=== PATIENT | male | born 1945 | race Caucasian/White ===

== ENCOUNTER 2017-03-08 16:10 | Observation (INO) ==
--- NOTE | 2017-03-08 16:46 | Emergency Department Report ---
General Adult HPI - General Chief complaint: Extremity Injury, Lower Stated complaint: R FIB Time Seen by Provider: 03/08/17 16:26 Source: patient, EMS, other (neighbors (DPOA)) Mode of arrival: EMS - History of Present Illness HPI narrative: 72 YO WM who presents to ER for inability to bear weight on right leg. EMS reports that the patient came back from the bathroom today stating his hip didn't feel right and then fell back into his recliner because he could no longer stand on the right leg. Patient has a history of right total hip replacement. Patient denies hip or leg pain. Daughter reports that patient has become progressively weaker over the last several weeks to months. Yesterday, patient and daughter went to grocery store and patient only made it down two aisles before he said he was tired and done. - Related Data Home Medications Medication Instructions Recorded Confirmed Aspirin [Aspirin EC] 81 mg PO DAILY 03/08/17 03/08/17 Allergies Allergy/AdvReac Type Severity Reaction Status Date / Time No Known Allergies Allergy Verified 03/08/17 16:54 Review of Systems Constitutional: Denies: fever, chills Eyes: Denies: eye pain, eye discharge, vision change ENT: Denies: ear pain, throat pain, dental pain, hearing loss Cardiovascular: Denies: chest pain, palpitations, dyspnea on exertion, syncope, paroxysmal nocturnal dyspnea Respiratory: Denies: cough, dyspnea, wheezes, hemoptysis Gastrointestinal: Denies: abdominal pain, nausea, vomiting Genitourinary: Denies: urgency, dysuria, frequency, hematuria Musculoskeletal: Reports: as per HPI Neurological: Reports: abnormal gait. Denies: headache PFSH Patient Stated Medical History Cerebrovascular Accident Yes Other Yes: CHEWS TOBACCO ?"heart problem" takes only a baby aspirin a day Surgical History: Bilateral total hip replacements - Social History Smoking status: Former smoker Substance use type: does not use Housing: house Current occupational status: retired Does patient use chewing tobacco?: Yes Current residence: Apartment/Private Home Physical Exam - Limitations Limitations: no limitations - General General appearance: alert - Normal Exams: Head:: Normocephalic without trauma Eyes:: Pupils are PERRLA w/ EOMI, No scleral icterus ENMT:: No facial trauma, nasal exudates, pharyngeal erythema, or exudates are noted Chest/Respirations:: Clear all guillen, with good airflow, and symmetry bilaterally Cardiovascular:: Regular rate and rhythm, without murmur or gallop, Pulses 2+ all extremities, capillary refill, <2 seconds all extremities Abdomen:: Bowel sounds positive, soft, non-tender, non-distended, no hepatosplenomegaly, masses or bruits noted Integumentary:: No rashes, hives, or bruising noted Neurological:: Patient is alert, and oriented, cranial nerves, motor/sensory/ cerebellar, exams w/o gross deficits Psychiatric:: Patient exhibits, appropriate attention, emotion and affect - Expanded Lower Extremity Exam Hip/Pelvis exam: Present: internal rotation. Absent: tenderness (denies tenderness to deep palpation), swelling Upper leg exam: Absent: tenderness (denies tenderness to deep palpation), swelling, deformity, crepitus Knee exam: Present: normal inspection. Absent: tenderness, swelling, abrasion, laceration, ecchymosis, deformity Lower leg exam: Present: normal inspection. Absent: swelling, abrasion, laceration, ecchymosis, deformity, crepitus, dislocation Ankle exam: Present: normal inspection Neurovascular/Tendon exam: Present: normal capillary refill Course Vital Signs Temperature 98.2 F 03/08/17 16:10 Pulse Rate 80 03/08/17 16:10 Respiratory Rate 20 03/08/17 16:10 Blood Pressure 110/85 03/08/17 16:10 Pulse Oximetry 96 03/08/17 16:10 Temperature 99.4 F 03/08/17 17:50 Pulse Rate 65 03/08/17 17:40 Respiratory Rate 20 03/08/17 17:40 Blood Pressure 166/91 H 03/08/17 17:40 Pulse Oximetry 97 03/08/17 17:40 Medical Decision Making - Lab Data Result diagrams: 03/08/17 16:55 03/08/17 16:55 Lab Results 03/08/17 03/08/17 03/08/17 Range/Units 16:54 16:55 16:55 WBC 11.4 H (4.5-11.0) T/MM3 RBC 5.15 (4.50-5.90) M/MM3 Hgb 14.1 (13.5-17.5) GM/DL Hct 44.2 (41-53) % MCV 85.8 (80-100) UM3 MCH 27.4 (26-34) UUG MCHC 31.9 (31-37) GM/DL RDW Std Deviation 45.8 (36.9-50.2) FL Plt Count 165 (130-400) T/MM3 MPV 12.1 (9.4-12.4) UM3 Immature Gran % (Auto) 0.3 (0.0-0.5) % Neut % (Auto) 81.5 H (33-66) % Lymph % (Auto) 10.8 L (23-45) % [place] % (Auto) 5.7 (0-9.0) % Eos % (Auto) 1.5 (0-4) % Baso % (Auto) 0.2 (0-2) % Neut # (Auto) 9.3 H (1.8-7.7) T/MM3 Lymph # (Auto) 1.2 (1-4.8) T/MM3 [place] # (Auto) 0.7 (0-0.8) T/MM3 Eos # (Auto) 0.2 (0-0.5) T/MM3 Baso # (Auto) 0.0 (0-0.2) T/MM3 Abs Immat Gran (auto) 0.03 (0.00-0.03) T/MM3 Turbidity < 20 (0-20) Sodium 145 H (134-144) MEQ/L Potassium 4.3 (3.6-5) MEQ/L Chloride 107 (98-107) MEQ/L Carbon Dioxide 26 (22-30) MEQ/L Anion Gap 12 (5-15) MEQ/L BUN 12.0 (9-20) MG/DL Creatinine 0.9 (0.8-1.5) MG/DL GFR Calculation 83 BUN/Creatinine Ratio 13 (6-26) RATIO Glucose 115 H (75-110) MG/DL Calculated Osmolality 280 (261-280) MOSM/KG Calcium 9.6 (8.4-10.2) MG/DL Total Bilirubin 1.00 (0.20-1.30) MG/DL Conjugated Bilirubin 0.00 (0.00-0.30) MG/DL Unconjugated Bilirubin 0.70 (0.00-1.1) MG/DL Icterus Index < 2 (0-7) AST 28 (17-59) U/L ALT 51 (21-72) U/L Alkaline Phosphatase 84 (38-126) U/L Troponin I < 0.012 (0-0.12) ng/ml Total Protein 7.9 (6.3-8.2) G/DL Albumin 4.5 (3.5-5.0) G/DL Globulin 3.4 (2.4-3.6) G/DL Albumin/Globulin Ratio 1.3 (1.1-2.2) RATIO Specimen Hemolysis < 15 < 15 (0-25) Ur Collection Type Urine Color (YELLOW) Urine Clarity Urine pH (5.0-8.0) Ur Specific [place] (1.015-1.025) Urine Protein (NEGATIVE) Urine Glucose (UA) (NEGATIVE) Urine Ketones (NEGATIVE) Urine Occult Blood (NEGATIVE) Urine Nitrate (NEGATIVE) Urine Bilirubin (NEGATIVE) Urine Urobilinogen (NORMAL) EU/DL Ur Leukocyte Esterase (NEGATIVE) Urine RBC (0-3) /HPF Urine WBC (0-5) /HPF Ur Squamous Epith Cells Urine Bacteria (NEGATIVE) Ur Culture Indicated? 03/08/17 Range/Units 17:32 WBC (4.5-11.0) T/MM3 RBC (4.50-5.90) M/MM3 Hgb (13.5-17.5) GM/DL Hct (41-53) % MCV (80-100) UM3 MCH (26-34) UUG MCHC (31-37) GM/DL RDW Std Deviation (36.9-50.2) FL Plt Count (130-400) T/MM3 MPV (9.4-12.4) UM3 Immature Gran % (Auto) (0.0-0.5) % Neut % (Auto) (33-66) % Lymph % (Auto) (23-45) % [place] % (Auto) (0-9.0) % Eos % (Auto) (0-4) % Baso % (Auto) (0-2) % Neut # (Auto) (1.8-7.7) T/MM3 Lymph # (Auto) (1-4.8) T/MM3 [place] # (Auto) (0-0.8) T/MM3 Eos # (Auto) (0-0.5) T/MM3 Baso # (Auto) (0-0.2) T/MM3 Abs Immat Gran (auto) (0.00-0.03) T/MM3 Turbidity (0-20) Sodium (134-144) MEQ/L Potassium (3.6-5) MEQ/L Chloride (98-107) MEQ/L Carbon Dioxide (22-30) MEQ/L Anion Gap (5-15) MEQ/L BUN (9-20) MG/DL Creatinine (0.8-1.5) MG/DL GFR Calculation BUN/Creatinine Ratio (6-26) RATIO Glucose (75-110) MG/DL Calculated Osmolality (261-280) MOSM/KG Calcium (8.4-10.2) MG/DL Total Bilirubin (0.20-1.30) MG/DL Conjugated Bilirubin (0.00-0.30) MG/DL Unconjugated Bilirubin (0.00-1.1) MG/DL Icterus Index (0-7) AST (17-59) U/L ALT (21-72) U/L Alkaline Phosphatase (38-126) U/L Troponin I (0-0.12) ng/ml Total Protein (6.3-8.2) G/DL Albumin (3.5-5.0) G/DL Globulin (2.4-3.6) G/DL Albumin/Globulin Ratio (1.1-2.2) RATIO Specimen Hemolysis (0-25) Ur Collection Type Urine, clean catch Urine Color Yellow (YELLOW) Urine Clarity Cloudy Urine pH 7.5 (5.0-8.0) Ur Specific [place] 1.020 (1.015-1.025) Urine Protein 2+ A (NEGATIVE) Urine Glucose (UA) Negative (NEGATIVE) Urine Ketones Negative (NEGATIVE) Urine Occult Blood 2+ A (NEGATIVE) Urine Nitrate Positive A (NEGATIVE) Urine Bilirubin Negative (NEGATIVE) Urine Urobilinogen 0.2 (NORMAL) EU/DL Ur Leukocyte Esterase 2+ A (NEGATIVE) Urine RBC 1-3 (0-3) /HPF Urine WBC 50-200 H (0-5) /HPF Ur Squamous Epith Cells 5-10 Urine Bacteria 2+ H (NEGATIVE) Ur Culture Indicated? Cult reflexed &setup - Radiology Data Radiology results reviewed: Yes: I reviewed the patient's radiology results. HIP X-RAY: Hip prosthesis appears intact and in place. No evidence of edgardo- prosthetic fracture. No evidence of dislocation. Disposition Clinical Impression: Weakness generalized UTI (urinary tract infection) Qualifiers: Urinary tract infection type: acute cystitis Hematuria presence: with hematuria Qualified Code(s): N30.01 - Acute cystitis with hematuria Disposition: 02 To [facility] Condition: Stable Prescriptions: No Action Aspirin [Aspirin EC] 81 mg PO DAILY Referrals: Gianfranco Maher MD [Family Provider] - Time of Disposition: 18:00 - Seen By: physician
[2017-03-08] MEDS ORDERED: CEFTRIAXONE (ER USE ONLY) 1 GM in NS 100 ML IV ONE (18:10)
[2017-03-08 19:30] VITALS: BMI 27.0
[2017-03-08] MEDS ORDERED: ONDANSETRON 4 MG/2 ML INJECTION IVP PRN (20:29)
[2017-03-08] MEDS ORDERED: Bisacodyl EC TAB 5 MG TABLET PO PRN (20:29)
[2017-03-08] MEDS ORDERED: ACETAMINOPHEN 325 MG TABLET PO PRN (20:29)
--- NOTE | 2017-03-08 20:42 | History & Physical Report ---
History of Present Illness Date: 03/08/17 Chief complaint: "i fell back" HPI: 72-year-old white male presents to the emergency room this evening with weakness. He says to me that Thursday night is trying to get up from a chair when he fell back. He refers to weakness in his right leg is the reason. There is no other family or friends present to give corroborating history. Apparently a neighbor who is perhaps the power of liner helper gave some additional history that he had been progressively and increasingly weak over the past several days or weeks. He denies any chest pain shortness of breath though he does perhaps admit to orthopnea, he denies any fever chills abdominal or flank pain. He denies dysuria. I've asked him if he has any urinary frequency or other symptoms c/w prostate issues and he says "he can go all night" (I am not sure after asking 3 x if that means he can go all night without having to urinate or that he has to urinate all night") He denies recent known history of injury to hip. He denies hip pain. Review of Systems Review of systems: weakness in right leg , he uses a walker for issues with his hips (broke both in the past) and shortness of breath with lying down (I think) - could be possibly referring to post nasal drip [facility] Patient Stated Medical History Cerebrovascular Accident Yes Other Yes: CHEWS TOBACCO Surgical History: Bilateral total hip replacements Family History: nc/ based on age - Social History Smoking status: Former smoker Substance use type: does not use Alcohol intake frequency: does not drink Housing: house Household members: none, other (single, no children. neighbor POA (?) ) Medications Home Medications Medication Instructions Recorded Confirmed Type Aspirin [Aspirin EC] 81 mg PO DAILY 03/08/17 03/08/17 History Allergies Allergy/AdvReac Type Severity Reaction Status Date / Time No Known Allergies Allergy Verified 03/08/17 19:32 Exam Vital Signs: Temperature 96.3 F L 03/08/17 19:36 Pulse Rate 65 03/08/17 19:36 Respiratory Rate 20 03/08/17 19:36 Blood Pressure 171/99 H 03/08/17 19:36 Pulse Oximetry 97 03/08/17 19:36 Height/Weight/BMI: Height 1.83 m Weight 90.5 kg Body Mass Index 27.0 - Additional findings Additional findings: in general he is pleasant, he is somewhat hard for me to understand, he is oriented to hospital near [place], and February 26, 2017 Facial muscles appear symmetric Neck is supple Lungs are clear bilaterally no accessory muscle use Cardiovascular is regular without murmur gallop or rub Abdomen is soft benign nontender Extremities Trace Edema Lines Were Socks Are Really, Neuro His Steam Drier Tender Strength and Facial Features Are Symmetric His Right Leg with Hip Flexion Is Slightly Weaker Compared to the Left Did Not Assess His Gait Results - Labs CBC & Chem 7: 03/08/17 16:55 03/08/17 16:55 Assessment and Plan (1) UTI (urinary tract infection) Current visit: Yes Status: Acute 03/08/17 20:48 low grade temp and urine c/w UTI. No signs/sx of back/flank pain to think of kidney stone. Will ask for PVR as prostatism / outflow track maybe an issue. Rocephin ordered in ER (2) Transient weakness of right lower extremity Current visit: Yes Status: Acute 03/08/17 20:49 This seems to be likely related to hx of hip issues, he usually needs a walker. I don't see reason at this point to pursue other CVA / cause workup but will order lipid panel and monitor for changes. (3) Weakness generalized Current visit: Yes Status: Acute 03/08/17 20:50 We are presuming at this time related to UTI. He speaks of perhaps orthopnea, will get 2 view CXR in AM, PT eval Hospital Course Summary Disclaimer: The visit summary below is not to be considered part of the above Progress Note.
[2017-03-09] MEDS ORDERED: NS FLUSH BAG 500ml IV PRN (06:52)
--- NOTE | 2017-03-09 07:25 | XRay Report ---
Indication: Can't bear weight on right leg, hx total hip replacement XR hip RT min 2V: Comparison: None Technique: Two view exam Findings: Patient shows postoperative changes about the right hip. Potential injury to the right inferior pubic symphysis is present. Patient shows a subtle questionable lucency. If this correlates with area of patient's symptoms CT scanning might be a consideration to better assess the finding. Some periosteal reaction is identified along the medial aspect of the mid femoral shaft. This finding is of indeterminate significance as no acute fracture line is noted. Impression: 1. Postoperative changes about the hip joint. 2. Questionable subtle injury to the inferior right pubic ramus. A subtle lucency is noted which is of indeterminate age. 3. Area of periosteal reaction along the medial shaft of the femur at the level of the distal intramedullary portion of the prosthesis. .
--- NOTE | 2017-03-09 07:33 | XRay Report ---
Indication: Can't bear weight on rt leg XR tib/fib RT 2V: Comparison: None Technique: AP and lateral view Findings: Patient showed mild degenerative changes about the ankle joint and moderate degenerative changes about the knee however no definite acute fracture appreciated. No malalignments noted. Impression: Degenerative changes particularly about the knee as well as the ankle without acute bony fracture. .
[2017-03-09] MEDS: ASPIRIN *EC* 81 MG TABLET PO SCH (10:54)
[2017-03-09] MEDS ORDERED: CEFTRIAXONE 1 G in NS 100 ML IV SCH (18:00)
[2017-03-10 07:50] VITALS: BP 149/60; PULSE 66; RESP 18; TEMP 97.3; O2SAT 95
[2017-03-10] MEDS: ASPIRIN *EC* 81 MG TABLET PO SCH (08:21)
--- NOTE | 2017-03-10 11:09 | Discharge Summary ---
Discharge Information Date of admission: 03/08/17 18:14 Anticipated date of discharge: 03/10/17 Attending Physician: Jamel Spann MD Primary care physician: Abraham Maher MD Consults: PT/OT IRU Screen - Discharge Diagnosis (1) UTI (urinary tract infection) Status: Acute (2) Weakness generalized Status: Acute (3) Transient weakness of right lower extremity Status: Acute Discharge Diagnosis: Discharge diagnosis UTI - ANDREW Associated conditions and complications Right lower ext weakness Leukocytosis Gait instability Generalized weakness CV disease with history of prior stroke OA - Laboratory Labs: Admit Lab 03/08/17 16:55 WBC 11.4 H Hgb 14.1 Hct 44.2 MCV 85.8 Plt Count 165 Neut % (Auto) 81.5 H Lymph % (Auto) 10.8 L [place] % (Auto) 5.7 Eos % (Auto) 1.5 Admit Lab 03/08/17 16:55 Sodium 145 H Potassium 4.3 Chloride 107 Carbon Dioxide 26 Anion Gap 12 BUN 12.0 Creatinine 0.9 GFR Calculation 83 Glucose 115 H Calculated Osmolality 280 Calcium 9.6 Total Bilirubin 1.00 AST 28 ALT 51 Alkaline Phosphatase 84 Total Protein 7.9 Albumin 4.5 UA 03/08/17 17:32 Urine Clarity Cloudy Ur Specific [place] 1.020 Urine Protein 2+ A Urine Occult Blood 2+ A Urine Nitrate Positive A Ur Leukocyte Esterase 2+ A Urine WBC 50-200 H Urine Bacteria 2+ H History of Present Illness HPI: 72-year-old white male presents to the emergency room this evening with weakness. He says to me that Thursday night is trying to get up from a chair when he fell back. He refers to weakness in his right leg is the reason. There is no other family or friends present to give corroborating history. Apparently a neighbor who is perhaps the power of employee benefits attorney gave some additional history that he had been progressively and increasingly weak over the past several days or weeks. He denies any chest pain shortness of breath though he does perhaps admit to orthopnea, he denies any fever chills abdominal or flank pain. He denies dysuria. I've asked him if he has any urinary frequency or other symptoms c/w prostate issues and he says "he can go all night" (I am not sure after asking 3 x if that means he can go all night without having to urinate or that he has to urinate all night") He denies recent known history of injury to hip. He denies hip pain. For complete details of the H&P refer to that document. Objective Vital signs: Temperature 97.3 F 03/10/17 07:50 Pulse Rate 66 03/10/17 07:50 Respiratory Rate 18 03/10/17 07:50 Blood Pressure 149/60 H 03/10/17 07:50 Pulse Oximetry 95 03/10/17 07:50 Height/Weight/BMI: Height 1.83 m Weight 89.4 kg Body Mass Index 27.0 - Constitutional Present: no acute distress, well nourished, well developed, cooperative - Routine HEENT Exam Head: Present: normocephalic, atraumatic ENT: Present: mucous membranes moist - Routine Respiratory Exam Present: decreased breath sounds. Absent: rales, respiratory distress, rhonchi , wheezes, crackles - Routine Cardiovascular Exam Present: RRR, no murmur - Routine Abdominal Exam Present: soft, normoactive bowel sounds, non distended, non tender - Routine Extremities Exam Present: edema (+1 edema of RLE). Absent: cyanosis, clubbing - Routine Skin Exam Present: intact, dry, warm - Routine Neurological Exam Present: alert, oriented X3, moving all extremities, vision grossly intact, hearing grossly intact. Absent: altered mental status - Routine Psychiatric Exam Present: normal affect, normal thought process. Absent: cooperative, anxious Hospital Course This is a general summary of the patient's hospital course. For more details refer to the complete medical record. Hospital course: 03/08/17 OBS admission Assessment UTI Leukocytosis Right lower ext weakness Gait instability Generalized weakness OA Plan OBS admission Rocephin for urinary coverage Continue home ASA. SCD for DVT prevention. Full code as per his requests. Care to return to Dr Maher at time of discharge from [facility]. 03/09/17 PT/OT to assess strength and functional status. Possible IRU evaluation depending of his level of functionality. Patient worked with PT-they do not feel is functioning well enough to return home independently. Patient agreeable to IRU. Awaiting transfer. 03/10/17 Urine growing ANDREW - will change to doxycycline. Accepted to IRU. Will transfer there in stable condition to maximize strength and functional status. Will need F/U with Dr Maher 1 week post discharge from IRU. See orders for details. DVT Prophylaxis: SCD's Discharge Plan - Med Rec/Dispo Referrals/Follow Up: Gianfranco Maher MD [Family Provider] - (Needs follow up 1 week after discharge from IRU. ) Dutch Instructions: Urinary Traction Infection in Older Adults (GEN) Prescriptions: New Doxycycline [Vibramycin] 100 mg PO BIDWM #14 tab Continue Aspirin [Aspirin EC] 81 mg PO DAILY Discharge Instructions/Outpatient Orders: Provider Discharge Instructions Location: Determined By Patient - Disposition 62 To [facility] INPT Rehab - Attestation Attestation Narrative: 03/10/17 11:21 I have independently interviewed and examined patient prior to discharge. Case discussed with CM and patients emergency care attendant. Medically stable for discharge to IRU.
== END 2017-03-10 12:00 ==
LOC: MED 16:10 → ED 16:10 → SUATTDRO 18:14 → MED 19:15
PROVIDERS: ADMIT Internal Medicine; ATTEND Hospitalist

== ENCOUNTER 2017-03-10 12:32 | Inpatient (IN) ==
[2017-03-10] MEDS ORDERED: Bisacodyl EC TAB 5 MG TABLET PO PRN (12:56)
[2017-03-10] MEDS ORDERED: ACETAMINOPHEN 325 MG TABLET PO PRN (12:56)
[2017-03-10] MEDS ORDERED: POLYETHYL GLYCOL 3350 17gm PACKET PO PRN (12:56)
[2017-03-10 14:19] VITALS: BMI 26.8
--- NOTE | 2017-03-10 14:31 | IRU History & Physical Report ---
HPI U Date: 424 Chief complaint: I'm weak HPI: Mr. Humphreys is a 72-year-old male who presented to [facility] emergency department on 03/08/2017. Referring physician is Dr. Jamel Spann, hospitalist. His primary care physician is Gianfranco Maher MD. He was admitted to the acute care hospital when he reported that he was having weakness in the right lower extremity. He denied any pain. He reported at the time of admission that he had gotten up from a chair and then fell back into the chair and at that point noted right lower extremity weakness. Evaluation in the emergency department failed to reveal any discomfort whatsoever and there was no evidence of stroke otherwise. The patient was noted to have a urinary tract infection but denied any dysuria or frequency or fever. He was admitted to the hospital because he could not care for himself at home due to the weakness in the right lower extremity as well as because the urinary tract infection. A plain radiograph of the right hip showed an old prosthesis on the right side in good position. There was questionable lucency in the right inferior pubic ramus without displacement. It was unclear if there was a fracture there or not. He denied any pain however in that area. 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 While on acute, the patient was noted to have methicillin sensitive staph aureus in his urine. He was treated initially with Rocephin and is now on doxycycline. He has been afebrile. However his intake has been poor. Prior to admission he had been independent with grooming, bathing, upper and lower body dressing and toileting. At the present time his functional level is as follows: Minimal assistance with eating, grooming, upper body dressing. He is maximum assistance for bathing, lower body dressing. He is total assistance for toileting, bed/chair/wheelchair transfers, toilet transfers and walking. He is able to walk only 2 feet with a rolling walker. The patient does not wish to answer many questions. I queried him as to his past medical history, his history of stroke etc. but he did not wish to respond to these. He told me to look in the chart or check the computer if I wanted to know further information. He did give us permission to visit with his power of defense attorney. Further history is obtained from her. His power of defense attorney is Sima Barclay. She indicates that she understands that the patient was a good student up until high school. At that time he suddenly lost the ability to read and write. Following that. Things went downhill and he is barely able to sign his name at present. He has been able to maintain employment at [employer] but is retired from them at present. Also worked for the [employer]. His real love his horses. He has been "mentally challenged" ever since the power of defense attorney has known him. The only relative is a cousin Sveta in [place]. She reports that he had a stroke about 10 years ago resulting in some left-sided weakness. However he has had a decline over the past month with decreased endurance, increased sweatiness and shortness of breath with activity. She indicates he was on Coreg in the past for blood pressure about 4 years ago. However he stopped taking it because he was taking both pills in the morning. In addition he declines to have his blood drawn according to her. Has had syncope about 6 months ago. He was taken to [facility] in [place] and it is not clear what happened. The DPOA was told he "didn't have a brain" and they did not know how he was living. The following medical conditions are noted and require active monitoring and/or management: 1. Recent UTI: risk for sepsis, worsening infection 2. Right lower leg weakness: apparently of new onset. No other evidence of stroke acutely. He is at risk for falls and further injury. 3. Hypernatremia: 145. 4. Hypertension: was on med in the past but not now. 5. Reduced cognition/mental "capacity" The following therapies will be needed: 1. Physical therapy: for transfers and ambulation and stairs. 2. Occupational therapy: for ADL's and transfers. 3. Dietitian: To insure adequate nutrition 4. Medical management: for the above conditions. 5. 24 hour Rehabilitation Nursing to monitor and address the following: Monitoring for signs of recurrence of infection or sepsis. [facility] Patient Stated Medical History Cerebrovascular Accident Yes Hx Incontinence No Other Yes: CHEWS TOBACCO Medical History Updates: 1. History of CVAuncertain residual Surgical History: Bilateral total hip replacements Family History: Father is of uncertain cause. Mother from myocardial infarction. He reportedly has no siblings. - Social History Smoking status: Never smoker Substance use type: other (patient chews tobacco at the rate of one box every 2 weeks he states.) Alcohol intake: never Alcohol intake frequency: other (reports drinking one beer per year.) Housing: house Household members: none Does patient use chewing tobacco?: Yes (reports going through one box every 2 weeks.) Current residence: Apartment/Private Home Social history: Patient reports that he enjoys taking care of horses. He is caring for 3 of his neighbors horses right now. 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 He lives in a trailer house. He is single and has never been . He was born in [place]. Review of Systems - Constitutional Constitutional: Present: anorexia. Absent: fatigue, lethargy - EENMT Eyes: Present: other (has disconjugate gaze. Uncertain which I he is looking out of.). Absent: blurry vision Balance: Absent: vertigo Mouth/Throat: Absent: pain, sore throat, scratchy throat - Cardiovascular Cardiovascular: Absent: chest pain, palpitations, syncope, dyspnea on exertion, orthopnea, edema Rhythm: Present: regular rhythm Vascular: Absent: intermittent claudication - Respiratory Respiratory: Absent: cough, dyspnea, hemoptysis, dyspnea on exertion, wheezing, pain on inspiration, chest congestion, excessive phlegm production - Gastrointestinal Gastrointestinal: Absent: abdominal pain, change in bowel habits, constipation, diarrhea, dyspepsia, dysphagia, nausea, vomiting - Musculoskeletal Musculoskeletal: Present: arthralgias - Neurological Neurological: Present: abnormal speech, memory loss (he appears to have memory loss. A formal exam was not performed at this time due to his lack of cooperation.), weakness - Psychiatric Psychiatric: Present: anxiety Medications Home Medications Medication Instructions Recorded Confirmed Type Aspirin [Aspirin EC] 81 mg PO DAILY 03/08/17 03/10/17 History Acetaminophen [Tylenol] 325 - 650 mg PO Q5H PRN 03/10/17 03/10/17 History Allergies Allergy/AdvReac Type Severity Reaction Status Date / Time No Known Allergies Allergy Verified 03/08/17 19:32 Results IRU - Labs Labs: Reviewed inpatient records and discussed with power of defense attorney. Exam Vital Signs: Temperature 97.9 F 03/10/17 12:40 Pulse Rate 73 03/10/17 12:40 Respiratory Rate 16 03/10/17 12:40 Blood Pressure 152/82 H 03/10/17 12:40 Pulse Oximetry 92 03/10/17 12:40 Height/Weight/BMI: Height 1.83 m Weight 89.8 kg Body Mass Index 26.8 - Constitutional Present: no acute distress, well developed, disheveled, agitated. Absent: well nourished, cooperative - Routine HEENT Exam Head: Present: normocephalic, atraumatic. Absent: cushingoid faces, abrasion, laceration Eye: Absent: EOMI (has bilateral disconjugate gaze. Each eye tends to deviate outward and I think he is looking through the other eye at that time.), scleral injection ENT: Present: oropharynx clear. Absent: mucous membranes moist - Routine Neck Exam Present: supple - Routine Respiratory Exam Present: CTA bilaterally. Absent: accessory muscle use, dyspnea, decreased breath sounds, prolonged expiratory phase, rales, respiratory distress, rhonchi , wheezes, crackles, distant breath sounds - Routine Cardiovascular Exam Present: RRR, S1, S2, no murmur. Absent: S3, S4 - Routine Abdominal Exam Present: soft, normoactive bowel sounds, non distended, non tender. Absent: distended, rebound, guarding, firm, rigid, organomegaly, mass - Routine Extremities Exam Present: no edema. Absent: cyanosis, clubbing, edema Comments: Has valgus deformity primarily of the right knee but also somewhat of the left. - Routine Skin Exam Present: dry, warm. Absent: intact, erythema, mottling, petechiae, urticaria, lesions - Routine Neurological Exam Present: alert, motor deficit (right leg appears to be weaker than the left on flexion at the hip as well as flexion and extension at the knee.). Absent: CN II-XII intact (disconjugate gaze with each eye deviated outward a bit.), altered mental status, normal speech (speech is difficult to understand.) - Routine Psychiatric Exam Absent: normal affect, normal thought process, cooperative, good insight, good judgment Sepsis Assessment - Evaluation Confirmed Suspected Infection: No IRU A/P (1) UTI (urinary tract infection) Qualifiers: Urinary tract infection type: acute cystitis Hematuria presence: with hematuria Qualified Code(s): N30.01 - Acute cystitis with hematuria Current visit: No Status: Acute Patient is on doxycycline. He has history of staph aureus methicillin sensitive UTI. He is at risk for worsening symptoms of urinary tract infection or sepsis. (2) Right leg weakness Current visit: Yes Status: Acute (3) Weakness generalized Current visit: No Status: Acute His functional ability has certainly declined compared to prior to the admission based on his report. He is unsafe to be at home alone at this time. He is generally weak but perhaps worse in the right lower extremity. He is at risk for falling and further injuring himself. (4) Anorexia Current visit: Yes Status: Chronic He reports a poor appetite. We will assess his prealbumin level to assess his degree of nutrition at present. Dietitian will be consulted as well. Resuscitation Status: Full Code - Course Hospital Course: Elmer Bran MD: - Interventions to Obtain Goals PT Treatment Plan: Balance/Proprioception, Functional Activities, Gait Training , Patient/Family Education OT Treatment Plan: ADL (Basic Care), Pt./Family Education Goals Progress/Modifications: The patient is not safe to be at home at the present time. It is anticipated the patient will be able to return to some degree of modified independent functioning. His mental status may be a significant barrier to his functional improvement. He tends to be noncooperative at present. Uncertain if this is related to a memory issue or personality disorder.
--- NOTE | 2017-03-10 14:45 | IRU 24Hr Post Admit Eval ---
24 Hr Post Admission Physical - Relevant Changes Relevant Changes: No Reviewed: I have reviewed the patient's information and concur with the finding and results of the pre-admission screen. Certification: I certify the patient for rehabilitation. - Patient Condition (1) UTI (urinary tract infection) Status: Acute Qualifiers: Urinary tract infection type: acute cystitis Hematuria presence: with hematuria Qualified Code(s): N30.01 - Acute cystitis with hematuria Code(s): N39.0 - Urinary tract infection, site not specified Classification: Present on IRF Admission, IRF Tx That Should Address Diagnosis, Diagnosis Requiring Medical Follow Up (2) Right leg weakness Status: Acute Code(s): R29.898 - Other symptoms and signs involving the musculoskeletal system Classification: Present on IRF Admission, IRF Tx That Should Address Diagnosis, Diagnosis Requiring Medical Follow Up (3) Weakness generalized Status: Acute Code(s): R53.1 - Weakness Classification: Present on IRF Admission, IRF Tx That Should Address Diagnosis, Diagnosis Requiring Medical Follow Up (4) Anorexia Status: Chronic Code(s): R63.0 - Anorexia Classification: Present on IRF Admission, IRF Tx That Should Address Diagnosis, Diagnosis Requiring Medical Follow Up - Prior Functional Status Lives With: Alone Residence Type: Apartment/Private Home Assitive Devices: None Prior Functional Status: Indep. at home or school, Used no assistive device - Current Functional Status Current Level of Function: Current level of functioning is minimal assistance for eating, grooming, and upper body dressing. He is maximum assistance for bathing, lower body dressing. He is total assistance for toileting, bed/chair/wheelchair transfers, toilet transfers and walking. He is able to walk with a rolling walker only 2 feet. Failed Alternative Therapy: Arrived from Acute Care Patient Requirements: The patient requires oversight by rehabilitation physician to manage their rehabilitation treatment plan and multidisciplinary approach to care that can only be provided in an IRF and requires a multidisciplinary approach to care, provided by professional PTs, OTs, dieticians, rehabilitation nurses and is not available in lesser levels of care. Limitations Req: Mobility Impairment, ADL Impairment, Cognitive Impairment Physical Therapy Minutes: 90 Occupational Therapy Minutes: 90 Therapy: The patient is to receive therapy at least 5 days a week. - Complications/Comorbidities Impact on Functional Outcomes: His cognition and cooperation level may negatively impact his functional outcome. Barriers to Discharge: Weakness, Endurance, Comprehension - Plan to Avoid Complications Plan to Avoid Complications: The patient cannot receive this care in a lesser intensive setting such as Nursing Home or Outpatient Therapy due to the patient requiring the following : 24 rehabilitation nursing to monitor recurrence of UTI/development of sepsis or worsening infection, monitor oral intake, avoidance of falls and to improve strength and endurance and balance. .
[2017-03-11] MEDS: ASPIRIN *EC* 81 MG TABLET PO SCH (09:26)
--- NOTE | 2017-03-11 19:00 | Consult Note ---
<Caty Mario - Last Filed: 03/11/17 18:56> Consult Information - Data of Consult Consult date: 03/11/17 Requesting Physician: Elmer Bran MD Primary Care Provider: Abraham Maher MD Family Provider: Abraham Maher MD - Consult Narrative Reason for consult: medical management of chronic health issues History of present illness: Patient is a 72-year-old who initially presented to our emergency department on 03/08/17 for weakness in the right lower extremity. There was no evidence of stroke at that time. Patient had been admitted to observation due to the new onset of weakness. He was diagnosed with a UTI on a during his stay and was treated with Rocephin initially and then switched to doxycycline. As he was medically stable, he was transferred to IRU for strengthening. Today patient is seen during therapy. He has very jovial and cooperative. He has no complaints at this time other than his weakness. 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 Review of Systems All systems PM: 10-point ROS was reviewed, no additional remarkable complaints except - Musculoskeletal Musculoskeletal: Present: muscle weakness Medications Home Medications Medication Instructions Recorded Confirmed Type Aspirin [Aspirin EC] 81 mg PO DAILY 03/08/17 03/10/17 History Acetaminophen [Tylenol] 325 - 650 mg PO Q5H PRN 03/10/17 03/10/17 History Allergies Allergy/AdvReac Type Severity Reaction Status Date / Time No Known Allergies Allergy Verified 03/10/17 17:21 Exam Vital Signs: Temperature 98.1 F 03/11/17 16:00 Pulse Rate 61 03/11/17 16:00 Respiratory Rate 25 H 03/11/17 16:00 Blood Pressure 142/77 H 03/11/17 16:00 Pulse Oximetry 93 03/11/17 16:00 Height/Weight/BMI: Height 1.83 m Weight 89.8 kg Body Mass Index 26.8 - Constitutional Present: well nourished, well developed - Routine HEENT Exam Eye: Absent: EOMI (left eye with lateral deviation) ENT: Present: mucous membranes moist - Routine Neck Exam Present: supple. Absent: thyromegaly - Routine Respiratory Exam Present: decreased breath sounds, CTA bilaterally. Absent: wheezes - Routine Cardiovascular Exam Present: RRR. Absent: murmur - Routine Abdominal Exam Present: soft, normoactive bowel sounds, non distended. Absent: tenderness - Routine Extremities Exam Present: normal capillary refill. Absent: edema Comments: Right lower extremity larger than the left. Patient states this is chronic for him. Apparently he's had some sort of surgery to the nerve in the left leg causing some atrophy. - Routine Skin Exam Present: dry, warm - Routine Neurological Exam Present: alert, moving all extremities. Absent: tremors - Routine Psychiatric Exam Present: normal affect, cooperative Results - Labs CBC & Chem 7: 03/11/17 04:43 03/11/17 04:43 Assessment and Plan (1) UTI (urinary tract infection) Current visit: No Status: Acute (2) Weakness generalized Current visit: No Status: Acute (3) Transient weakness of right lower extremity Current visit: No Status: Acute Assessment and Plan: Assessment Right leg weakness Generalized weakness Anorexia UTI-on doxycycline Malnutrition Plan Patient has a dietary consult ordered and will start nutritional supplements. Could consider mirtazapine to help with appetite. Will see how he does w/ nutritional supplements first. Continue doxycycline for UTI through March 17. PT/OT for strengthening. Will continue to follow patient throughout his stay. Thank you for the consult. Hospital Course Summary Disclaimer: The visit summary below is not to be considered part of the above Progress Note. Hospital Course: Assessment Right leg weakness Generalized weakness Anorexia UTI-on doxycycline Malnutrition 03/11/17 - hospitalist consult Patient has a dietary consult ordered and will start nutritional supplements. Could consider mirtazapine to help with appetite. Will see how he does w/ nutritional supplements first. Continue doxycycline for UTI through March 17. PT/OT for strengthening. Will continue to follow patient throughout his stay. Thank you for the consult. <Roshni Galaviz - Last Filed: 03/11/17 21:46> Consult Information - Data of Consult Requesting Physician: Elmer Bran MD Primary Care Provider: Abraham Maher MD Family Provider: Abraham Maher MD Exam Vital Signs: Temperature 98.1 F 03/11/17 16:00 Pulse Rate 61 03/11/17 16:00 Respiratory Rate 25 H 03/11/17 16:00 Blood Pressure 142/77 H 03/11/17 16:00 Pulse Oximetry 93 03/11/17 16:00 Height/Weight/BMI: Height 1.83 m Weight 89.8 kg Body Mass Index 26.8 Results - Labs CBC & Chem 7: 03/11/17 04:43 03/11/17 04:43 Assessment and Plan (1) UTI (urinary tract infection) Problem details: ANDREW Current visit: No Status: Acute (2) Weakness generalized Current visit: No Status: Acute (3) Transient weakness of right lower extremity Current visit: No Status: Acute Resuscitation Status: Full Code Assessment and Plan: I have independently evaluated and examined this patient. I reviewed the chart, the patient's history, and the LIQUOR BRIDGE OPERATOR HELPER/PA's documented findings as above. We discussed and formulated the assessment and plan as above with additions as below: Mr. Humphreys was hospitalized with weakness attributed to urinary tract infection rather than new stroke. He reports he still has some minor weakness in his right leg but that he was able to walk all over the unit today and he thinks he'll be able to go home soon. He denies dysuria or fever. Talkative male with moderate dysarthria; exotropia Respirations nonlabored, breath sounds clear Upper extremity power normal both proximally and distally, distal lower extremity power normal but weakness present proximal right lower extremity compared to left. Sensation intact 4 extremities Pre-albumin 12.3, renal function good with GFR 95; mild leukocytosis on presentation and may have been slightly dehydrated as patient appears to been hemoconcentrated although BUN/creatinine really haven't changed since admission. Urine culture reviewed. Switch to cephalexin for treatment of UTI for better penetration of the urinary tract compared to doxycycline. Continue strengthening efforts prior to return home. Return to the care of Dr. Maher at discharge. Prior records reviewed. X-ray right hip and tib-fib reviewed by myself and demonstrated good positioning of hemiarthroplasty and no fracture of femur. Radiology read a possible subtle injury to the inferior right pubic ramus however the patient does not complain of pubic/pelvic pain; degenerative changes around the knee and ankle. In addition to above diagnoses please add: #1 history CVA Hospital Course Summary Disclaimer: The visit summary below is not to be considered part of the above Progress Note.
[2017-03-12] MEDS: ASPIRIN *EC* 81 MG TABLET PO SCH (08:59)
--- NOTE | 2017-03-12 14:17 | IRU Progress Note ---
- Subjective/Serverity of Illness Mr. Humphreys was evaluated in his room on the inpatient rehabilitation unit. He continues to state that he does not eat well and never has. He also states that he wants to go home as soon as possible. He continues to bring up his hobby of horses as well. He is making progress with therapies for both occupational therapy and physical therapy. At times he is not is cooperative. He would like to take all of his antibiotics at once to get the infection over with. He denies any dysuria nor frequency. He has had no chest pain and no shortness of breath. 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 He does have history of hypertension. His blood pressures are running a bit high. In the past he was on carvedilol according to his power of personal injury attorney. He did not like to take this because it was a twice-daily medication. For this reason and because his pressures are still up we will place him on some metoprolol succinate 40 once daily medication. 1. Recent UTI: He has been on doxycycline. He has had staph aureus in the urine. This has been methicillin sensitive. The patient denies any dysuria or frequency. 2. Right lower leg weakness: He denies any pain in the right leg. Both legs are weak but the right is worse in the left. 3. Hypernatremia: Sodium initially was 145. It is now down to 142. 4. Hypertension: Please see above discussion. His pressures are running a bit high. I will start a low dose of metoprolol succinate. 5. Reduced cognition/mental "capacity": I'm not certain he has great judgment nor comprehension. He would like to get back home as soon as possible. This is not a new issue however according to the power of personal injury attorney. 6. Moderate protein calorie malnutrition: The patient's prealbumin is 12. Dietitian is consulted. Exam Vital Signs: Temperature 98.5 F 03/12/17 08:00 Pulse Rate 74 03/12/17 08:00 Respiratory Rate 20 03/12/17 08:00 Blood Pressure 181/81 H 03/12/17 08:00 Pulse Oximetry 98 03/12/17 08:00 Height/Weight/BMI: Height 1.83 m Weight 89.8 kg Body Mass Index 26.8 Comments: The patient is awake, alert. To the best of my knowledge she is oriented. He was to get home as soon as possible. His judgment is impaired. Pupils are equal. The neck is supple. Chest: Clear to auscultation bilaterally. Cor: RR with no gallop, click nor murmur Abd: soft with normo-active bowel sounds. There are no masses, no tenderness and no guarding. Extremities: No edema is noted. He does have severe valgus deformity of both knees. Results IRU - Labs Labs: Have reviewed his labs including pre-albumin of 12. IRU A/P (1) UTI (urinary tract infection) Qualifiers: Urinary tract infection type: acute cystitis Hematuria presence: with hematuria Qualified Code(s): N30.01 - Acute cystitis with hematuria Problem details: ANDREW Current visit: No Status: Acute He is finishing up his course of doxycycline for methicillin sensitive staph aureus. Currently denies any dysuria or frequency. He has remained afebrile. (2) Right leg weakness Current visit: Yes Status: Acute Has right leg weakness. Uncertain if this is progressive or not. He does have valgus deformity of both knees which plays a role in this as well. Denies any pain. (3) Weakness generalized Current visit: No Status: Acute Has significant generalized weakness likely due to disuse/deconditioning at home. (4) Anorexia Current visit: Yes Status: Chronic He does have evidence for protein calorie malnutrition at least a moderate degree based on the pre-albumin level of 12. He is being seen by the dietitian. (5) Hypertension Qualifiers: Hypertension type: essential hypertension Qualified Code(s): I10 - Essential (primary) hypertension Current visit: Yes Status: Chronic Patient's power of personal injury attorney reported that he has a history of hypertension and formerly was on carvedilol. He did not like this because it was a twice day medication. His pressures are running a bit higher at the present time so we will start a low dose of metoprolol succinate for a once daily medication. Resuscitation Status: Full Code - Course Hospital Course: Elmer Bran MD: 03/12/17 14:20 He is working with therapy both physical therapy and occupational therapy. Dietitian is monitoring. Does have moderate protein calorie malnutrition based on low. Albumin. His blood pressures are running too high and we will start a daily dose of metoprolol succinate. - Interventions to Obtain Goals PT Treatment Plan: Balance/Proprioception, Functional Activities, Gait Training , Patient/Family Education, Therapeutic Exercise OT Treatment Plan: ADL (Basic Care), Balance Training, Pt./Family Education, Ther. Exercise for ADL Goals Progress/Modifications: Time spent with patient and on floor reviewing data and documentin min Barriers to dismissal: Cognition, endurance, safety awareness Medical decision-making: He remains afebrile. He will finish out his course of doxycycline which he is tolerating well. His blood pressures are running too high so we will start metoprolol succinate 25 mg today as a once daily medication. Will monitor his response to this carefully. He has a new diagnosis of at least moderate protein calorie malnutrition which is addressed with dietary consultation.
--- NOTE | 2017-03-12 15:04 | IRU Plan of Care ---
U Overall Plan of Care - Date Date: 03/12/17 - Patient Impairments (1) UTI (urinary tract infection) Qualifiers: Urinary tract infection type: acute cystitis Hematuria presence: with hematuria Qualified Code(s): N30.01 - Acute cystitis with hematuria Code(s): N39.0 - Urinary tract infection, site not specified Status: Acute Classification: Present on IRF Admission, IRF Tx That Should Address Diagnosis, Diagnosis Requiring Medical Follow Up (2) Right leg weakness Code(s): R29.898 - Other symptoms and signs involving the musculoskeletal system Status: Acute Classification: Present on IRF Admission, IRF Tx That Should Address Diagnosis, Diagnosis Requiring Medical Follow Up (3) Weakness generalized Code(s): R53.1 - Weakness Status: Acute Classification: Present on IRF Admission, IRF Tx That Should Address Diagnosis, Diagnosis Requiring Medical Follow Up (4) Anorexia Code(s): R63.0 - Anorexia Status: Chronic Classification: Present on IRF Admission, IRF Tx That Should Address Diagnosis, Diagnosis Requiring Medical Follow Up (5) Hypertension Qualifiers: Hypertension type: essential hypertension Qualified Code(s): I10 - Essential (primary) hypertension Code(s): I10 - Essential (primary) hypertension Status: Chronic - Relevant Changes Relevant Changes: No Reviewed: I have reviewed the patient's information and concur with the finding and results of the pre-admission screen. Certification: I certify the patient for rehabilitation. - Medical Prognosis Medical Prognosis: Good Vital Signs: Last Vital Signs Temp 98.5 F 03/12/17 08:00 Pulse 74 03/12/17 08:00 Resp 20 03/12/17 08:00 BP 181/81 H 03/12/17 08:00 Pulse Ox 98 03/12/17 08:00 - Anticipated Interventions Anticipated Interventions: The patient requires inpatient IRF care for PT, OT, and/or ST for residuals remaining from UTI and right leg weakness resulting in muscular weakness and strength deficits. Strength Deficits: Right Lower Extremity - Current Functional Status Failed Alternative Therapy: Arrived from Acute Care Patient Requires: The patient requires oversight by rehabilitation physician to manage their rehabilitation treatment plan and multidisciplinary approach to care that can only be provided in an IRF and requires a multidisciplinary approach to care, provided by professional PTs, OTs, rehabilitation nurses, and may require STs, dieticians, and RTS. This is not available in lesser levels of care. Physical Therapy Minutes: 90 Occupational Therapy Minutes: 90 Therapy: The patient is to receive therapy at least 5 days a week. - Anticipated LOS/Outcomes Anticipated Functional Outcome: It is anticipated the patient will be able to successfully and safely return home at a modified independent level of functioning. Anticipated Length of Stay (days): 6 Anticipated DC Destination: Home, Self Care, Home Health Service Home Safety Plan: The patient will be provided with the development of a Home Safety Plan for return to a home or home-like environment and and to ensure safety post discharge. - Plan to Avoid Complications Barriers to Attaining Goals: Weakness, Endurance Plan to Avoid Complications: The patient cannot receive this care in a lesser intensive setting such as Prison or Outpatient Therapy due to the patient requiring the following : Close monitoring of vital signs to ensure no evidence of recurrence of UTI nor sepsis, strategies to reduce risk of falls in view of his reduced cognition , improved oral intake on an intensive basis to improve nutrition.
[2017-03-13] MEDS: ASPIRIN *EC* 81 MG TABLET PO SCH (09:03)
--- NOTE | 2017-03-13 13:13 | IRU Progress Note ---
- Subjective/Serverity of Illness Ruben was evaluated on the inpatient rehabilitation unit. He is cooperative with therapy. He denies any shortness of breath or chest pain. He is having bowel movements. Yesterday I order some metoprolol once daily for his elevated blood pressures. He declined that. I talked about that with him this morning as well as yesterday. He states that he will not take it if he goes home with a prescription. I told him that it would be important to treat his elevated blood pressures. However he declines at the present time. Since it is not likely he will take it at home, we will discontinue it here. He denies any pains empirically denies any pelvic pains. Still has some weakness in both lower extremities but improving. Reviewed therapy notes. He is standby assistance for ambulation of over 300 feet. He is contact-guard for grooming. Continues to improve and has not met all goals yet. Update on medical issues: 1. Recent UTI: Methicillin sensitive staph aureus was cultured from the urine. He was changed from doxycycline to cephalexin yesterday by the hospitalist service. 2. Right lower leg weakness: Continues to have some weakness in the right lower extremity compared to the left. However much of this may be chronic at this point. 3. Hypernatremia: We will reassess prior to dismissal. Most recent sodium was stable and normal. 4. Hypertension: We have started metoprolol but he declines. He states he will not take this at home so we will discontinue that at present. 5. Reduced cognition/mental "capacity": His power of corporate attorney is present for the team meeting today. 6. Moderate protein calorie malnutrition: The patient has evidence of malnutrition on the basis of dietary history as well as low pre-albumin. Dietitian is consulted. Exam Vital Signs: Temperature 98.3 F 03/13/17 08:00 Pulse Rate 100 03/13/17 08:00 Respiratory Rate 18 03/13/17 08:00 Blood Pressure 132/82 03/13/17 08:00 Pulse Oximetry 94 03/13/17 08:00 Height/Weight/BMI: Height 1.83 m Weight 89.8 kg Body Mass Index 26.8 Comments: The patient is awake, alert and in no acute distress. Pupils are equal. The neck is supple. Chest: Clear to auscultation bilaterally. Cor: RR with no gallop, click nor murmur Abd: soft with normo-active bowel sounds. There are no masses, no tenderness and no guarding. Extremities: No edema is noted. Strength was tested in the lower extremities. He has a lot of deformity at the knees with a valgus deformity bilaterally. Continues to have leg weakness right worse than left but it is fairly minimal. IRU A/P (1) UTI (urinary tract infection) Qualifiers: Urinary tract infection type: acute cystitis Hematuria presence: with hematuria Qualified Code(s): N30.01 - Acute cystitis with hematuria Problem details: ANDREW Current visit: No Status: Acute Hospitalist service changed from doxycycline to cephalexin. He denies any dysuria or frequency. (2) Right leg weakness Current visit: Yes Status: Acute Continues to have lower extremity weakness. It is slowly improving with therapy. Therapy notes reviewed. (3) Weakness generalized Current visit: No Status: Acute (4) Anorexia Current visit: Yes Status: Chronic He has protein calorie malnutrition. We discussed with him the importance of a balanced diet at home. He mainly eats potato chips and fruit and [place]. (5) Hypertension Qualifiers: Hypertension type: essential hypertension Qualified Code(s): I10 - Essential (primary) hypertension Current visit: Yes Status: Chronic Patient has hypertension and was on medications in the past. He refused to take anything at present. We have discussed this with him and detail and he declines. Resuscitation Status: Full Code - Course Hospital Course: Elmer Bran MD: 03/12/17 14:20 He is working with therapy both physical therapy and occupational therapy. Dietitian is monitoring. Does have moderate protein calorie malnutrition based on low. Albumin. His blood pressures are running too high and we will start a daily dose of metoprolol succinate. 03/13/17 13:16 Continues to progress with therapy. Still has lower extremity weakness. His primary goal is to walk again and get back home as soon as possible. Encouragement to eat a balanced diet was given. Recommended blood pressure medication but he declines. We will discontinue metoprolol. - Interventions to Obtain Goals PT Treatment Plan: Balance/Proprioception, Functional Activities, Gait Training , Patient/Family Education, Therapeutic Exercise OT Treatment Plan: ADL (Basic Care), Balance Training, Pt./Family Education, Ther. Exercise for ADL Goals Progress/Modifications: Time spent with patient and on floor reviewing data and documentin min Barriers to dismissal: Cognition, endurance, balance Medical decision-making: Please see above discussion regarding his blood pressure. We have started metoprolol yesterday. I visited with him about this last night as well as today. He continues to refuse to take the blood pressure medication. In addition, we are concerned about his nutritional status. He declines to eat anything debilitated chips and fruit.
--- NOTE | 2017-03-13 13:22 | IRU Team Meeting ---
IRU Team Meeting - Nursing Vital Signs: Vital Signs - 24 hr 03/12/17 16:00 03/12/17 19:32 03/13/17 08:00 Temperature 98.1 F 97.5 F 98.3 F Pulse Rate 52 L 63 100 Respiratory Rate 22 18 18 Blood Pressure 154/71 H 139/72 132/82 Pulse Oximetry 94 93 94 Current Medications: Acetaminophen (Tylenol) 325 - 650 mg PO Q5H PRN PRN Reason: Discomfort Aspirin (Ecotrin) 81 mg PO DAILY [facility] Last Admin: 03/13/17 09:03 Dose: 81 mg Bisacodyl (Dulcolax) 5 mg PO DAILY PRN PRN Reason: Constipation Cephalexin HCl (Keflex) 500 mg PO Q6H [facility] Stop: 03/19/17 17:59 Last Admin: 03/13/17 12:18 Dose: 500 mg Magnesium Hydroxide (Mom) 30 ml PO DAILY PRN PRN Reason: Constipation Polyethylene Glycol (Miralax) 17 gm PO DAILY PRN PRN Reason: Constipation Current Medical Issues: UTI, reduced cognition, leg weakness,hypertension Comments: I certify that I personally led the interdisciplinary team meeting and agree with comments, barriers and goals indicated. Team meeting was held in the patient's room with the patient and the following family members present: TOBIN Ms. Barclay. Mr. Arnett continues to have poor oral intake of a balanced nutritional diet. We discussed this with him today and encouraged brought her intake. In addition , we discussed his blood pressure which he declines to take a medication for it at present. We started him on metoprolol yesterday but he declined to take it. We discussed this with him yesterday as well as today. His bowels are moving. He has no dysuria and no frequency from the UTI. The doxycycline was recently changed to cephalexin. - Dietary Patient is being provided dietary supplements in the form of mighty shakes. - Physical Therapy Comments: Ruben is standby assist to supervision level for bed/chair/wheelchair transfers as well as ambulation. He is walking 317 feet. He is standby assist to supervision level for climbing 4 steps. He is standby assistance to supervision for car transfers. He is at standby assistance level for all functional mobilities. Patient does lack safety awareness on occasion. He is very willing to work with therapy. It is recommended patient consider home health at home. - Occupational Therapy Comments: He is cooperative and working toward occupational therapy goals. He is making progress. He continues to require verbal cues for safety. He would benefit from home health to continue progress and for safety concerns. - Goals Goals: 1. Prepare simple meal at modified independent level of functioning 2. Lower body dressing with modified independent level of functioning 3. Transfer with modified independent level IV. Ambulate 150 feet with use of frontwheel walker with modified independent level of functioning. - Barriers to Discharge Barriers to Attaining Goals: Other (safety, gait) - Care Plan Anticipated DC Destination: Home, Self Care, Home Health Service I have led this team conference and agree with the plan. Anticipated Length of Stay (days): 5
[2017-03-14] MEDS: ASPIRIN *EC* 81 MG TABLET PO SCH (11:10)
[2017-03-15] MEDS: ASPIRIN *EC* 81 MG TABLET PO SCH (09:00)
--- NOTE | 2017-03-15 15:22 | Progress Note ---
<Kristen Evans D - Last Filed: 03/15/17 15:19> - Date 03/15/17 Subjective: Patient was resting in his room, watching television. His speech was garbled and per his RN this is typical for him. He was upset about not leaving, and earlier his nurse stated he was also upset. He denied any acute problems. He has been eating 100% of meals. Last BM was 03/14/17. Objective Vital signs: Temperature 97.8 F 03/15/17 08:00 Pulse Rate 48 L 03/15/17 08:00 Respiratory Rate 14 03/15/17 08:00 Blood Pressure 158/72 H 03/15/17 08:00 Pulse Oximetry 95 03/15/17 08:00 Height/Weight/BMI: Height 1.83 m Weight 91.4 kg Body Mass Index 26.8 - Constitutional Present: no acute distress, well nourished, well developed - Routine HEENT Exam Eye: Absent: EOMI (left eye exotropia) ENT: Present: mucous membranes moist - Routine Respiratory Exam Present: CTA bilaterally - Routine Cardiovascular Exam Present: RRR, S1, S2 - Routine Abdominal Exam Present: soft, normoactive bowel sounds, non distended, non tender - Routine Extremities Exam Present: pulses intact - Routine Skin Exam Present: intact, dry, warm - Routine Neurological Exam Present: alert. Absent: normal speech (moderate dysarthria) - Routine Psychiatric Exam Present: cooperative Results - Labs CBC & Chem 7: 03/11/17 04:43 03/11/17 04:43 Assessment and Plan (1) UTI (urinary tract infection) Problem details: ANDREW Current visit: No Status: Acute (2) Weakness generalized Current visit: No Status: Acute (3) Transient weakness of right lower extremity Current visit: No Status: Acute Resuscitation Status: Full Code Assessment and Plan: Impression Right leg weakness Generalized weakness Anorexia UTI-on keflex Malnutrition history of CVA Plan Continue Keflex through 03/19/17. Mild-moderate elevations in BP - consider starting antiHTN; could wait until outpatient setting. DC tentatively planned for 03/16/17. Hospital Course Summary Disclaimer: The visit summary below is not to be considered part of the above Progress Note. Hospital Course: Assessment Right leg weakness Generalized weakness Anorexia UTI-on doxycycline Malnutrition 03/11/17 - hospitalist consult Patient has a dietary consult ordered and will start nutritional supplements. Could consider mirtazapine to help with appetite. Will see how he does w/ nutritional supplements first. Continue doxycycline for UTI through March 17. PT/OT for strengthening. Will continue to follow patient throughout his stay. Thank you for the consult. 03/15/17 Continue Keflex through 03/19/17. Mild-moderate elevations in BP - consider starting antiHTN; could wait until outpatient setting. DC tentatively planned for 03/16/17. <Clara Hong - Last Filed: 03/15/17 18:43> - Date 03/15/17 Objective Vital signs: Temperature 97.7 F 03/15/17 16:00 Pulse Rate 56 L 03/15/17 16:00 Respiratory Rate 16 03/15/17 16:00 Blood Pressure 146/82 H 03/15/17 16:00 Pulse Oximetry 97 03/15/17 16:00 Height/Weight/BMI: Height 1.83 m Weight 91.4 kg Body Mass Index 26.8 Results - Labs CBC & Chem 7: 03/11/17 04:43 03/11/17 04:43 Assessment and Plan (1) UTI (urinary tract infection) Problem details: ANDREW Current visit: No Status: Acute (2) Weakness generalized Current visit: No Status: Acute (3) Transient weakness of right lower extremity Current visit: No Status: Acute Assessment and Plan: 03/15/2017-I reviewed this chart, the patient history, and the BARREL BURNER's/PA's documented findings as above. We discussed and formulated the assessment and plan as above with the additions below.-Hal The patient was seen in his room this evening after supper. He was watching television. He states he is feeling well. He denies any pain. He denies any shortness of breath. He states he is eating without difficulties. He states he wants to know why he was admitted to rehabilitation. On exam he is alert and in no acute distress. Chest is clear to auscultation. Cardiovascular reveals a regular rate and rhythm. Abdomen is soft and nontender. Extremities are free of edema. Continue with current care plan. Possible discharge soon. Hospital Course Summary Disclaimer: The visit summary below is not to be considered part of the above Progress Note.
--- NOTE | 2017-03-15 15:31 | Discharge Instructions ---
Discharge Plan - Med Rec/Dispo Referrals/Follow Up: Gianfranco Maher MD [Family Provider] - 1 Week Prescriptions: New CephALEXin [Keflex] 500 mg PO Q6H #16 capsule Continue Aspirin [Aspirin EC] 81 mg PO DAILY Acetaminophen [Tylenol] 325 - 650 mg PO Q5H PRN PRN Reason: Pain Discontinued Doxycycline [Vibramycin] 100 mg PO BIDWM #14 tab
[2017-03-16] MEDS: ASPIRIN *EC* 81 MG TABLET PO SCH (09:10)
--- NOTE | 2017-03-16 10:52 | IRU Progress Note ---
- Subjective/Serverity of Illness Jalen was evaluated in his room on the inpatient rehabilitation unit. He is sitting there eating popcorn. We have again discussed nutrition with him and he does have evidence of at least moderate protein calorie malnutrition based on a low prealbumin as well as dietary history. He declines to change his dietary habits however. He is upset because no one would walking yesterday. He continues to work with therapy. Denies any chest pain or shortness of breath. Apparently bowels are moving. His sodium has returned to normal. Repeat hemoglobin is now normal at 13. No evidence of active infection at present and no dysuria and no frequency. Exam Vital Signs: Temperature 97.6 F 03/15/17 20:19 Pulse Rate 69 03/16/17 08:00 Respiratory Rate 16 03/16/17 08:00 Blood Pressure 155/85 H 03/16/17 08:00 Pulse Oximetry 99 03/16/17 08:00 Height/Weight/BMI: Height 1.83 m Weight 91.4 kg Body Mass Index 26.8 Comments: The patient is awake, alert and somewhat oriented and in no acute distress. He is upset and angry quite a bit of the time. Pupils are equal. The neck is supple. Chest: Clear to auscultation bilaterally. Cor: RR with no gallop, click nor murmur Abd: soft with normo-active bowel sounds. There are no masses, no tenderness and no guarding. Extremities: No edema is noted. Results IRU - Labs Labs: Have reviewed current labs. IRU A/P (1) UTI (urinary tract infection) Qualifiers: Urinary tract infection type: acute cystitis Hematuria presence: with hematuria Qualified Code(s): N30.01 - Acute cystitis with hematuria Problem details: ANDREW Current visit: No Status: Acute Currently no evidence for active dysuria or fever etc. (2) Right leg weakness Current visit: Yes Status: Resolved Has bilateral leg weakness. Not certain of the right leg is really any worse in the left. Has a lot of deformity in the knees which probably plays a role in his weakness as well. (3) Weakness generalized Current visit: No Status: Acute (4) Anorexia Current visit: Yes Status: Chronic (5) Hypertension Qualifiers: Hypertension type: essential hypertension Qualified Code(s): I10 - Essential (primary) hypertension Current visit: Yes Status: Chronic Blood pressures remain elevated. However he declines blood pressure medication. This has been discussed in detail with the patient. Resuscitation Status: Full Code - Course Hospital Course: Elmer Bran MD: 03/12/17 14:20 He is working with therapy both physical therapy and occupational therapy. Dietitian is monitoring. Does have moderate protein calorie malnutrition based on low. Albumin. His blood pressures are running too high and we will start a daily dose of metoprolol succinate. 03/13/17 13:16 Continues to progress with therapy. Still has lower extremity weakness. His primary goal is to walk again and get back home as soon as possible. Encouragement to eat a balanced diet was given. Recommended blood pressure medication but he declines. We will discontinue metoprolol. 03/16/17 10:50 Blood pressures remain elevated but he declines medication for this. Nutritional intake is certainly marginal. He declines to change this. - Interventions to Obtain Goals PT Treatment Plan: Balance/Proprioception, Functional Activities, Gait Training , Patient/Family Education, Therapeutic Exercise OT Treatment Plan: ADL (Basic Care), Balance Training, Pt./Family Education, Ther. Exercise for ADL Goals Progress/Modifications: Time spent with patient and on floor reviewing data and documentin min Barriers to dismissal: Endurance, safety awareness Medical decision-making: No changes are made at present. We again encouraged better nutritional intake. We will continue working with him for another couple of days as he is making progress.
--- NOTE | 2017-03-16 11:13 | Progress Note ---
Progress Note: Please see prior progress note from today. After I had seen him, he had been working with therapy. He was standing with a walker. Suddenly felt a discomfort in the right groin. Previously on his AP pelvis films there appeared to be a lucency. However he has not really had pain in that area. Today he does have discomfort in the right groin after trying to stand. I evaluated the patient. He has actually good range of motion of the right hip. I do not sense any degree of new weakness on the right side compared to the previous level of generalized weakness. He states that the pain is improved. However in view of this new discomfort, we will repeat the AP pelvis film and compare with the previous to see if there might be evidence of acute fracture of the pubic rami.
--- NOTE | 2017-03-16 12:06 | XRay Report ---
EXAM: XR pelvis 1-2V LOCATION OF DICTATION: [place] HISTORY: New pain right groin: compare with prior film COMPARISON: August 16, 2014 and March 08, 2017. TECHNIQUE: Single view of the pelvis and single view of the right hip. FINDINGS: Bilateral total hip replacements are demonstrated. There is no evidence for acute hardware malfunction. There are stable irregularity and cortical thickening about the right inferior pubic ramus which may reflect a chronic healed fracture. There is stable calcination demonstrated about the mid and distal portions of the right femur. Generalized osteopenia suggested. No visible acute fractures are identified. IMPRESSION: 1. Bilateral total hip replacements without a three hardware malfunction. No evidence for malalignment or acute fracture. 2. Chronic healed fracture involving the right inferior pubic ramus and right mid/distal femur. .
[2017-03-17] MEDS: ASPIRIN *EC* 81 MG TABLET PO SCH (08:02)
--- NOTE | 2017-03-17 09:56 | IRU Progress Note ---
- Subjective/Serverity of Illness Ruben was evaluated in his room. He is anxious to go home tomorrow. Yesterday he did not have a good day with regard to some discomfort in the right groin. Repeat radiograph of AP pelvis was performed demonstrating an old pubic ramus fracture with good healing but no evidence of any new trauma. Today he feels better. He is able to ambulate with assistance. He denies any chest pain, shortness of breath, cough or sputum. He denies any nausea or vomiting. Exam Vital Signs: Temperature 97.7 F 03/17/17 08:00 Pulse Rate 62 03/17/17 08:00 Respiratory Rate 16 03/17/17 08:00 Blood Pressure 162/75 H 03/17/17 08:00 Pulse Oximetry 98 03/17/17 08:00 Height/Weight/BMI: Height 1.83 m Weight 91.4 kg Body Mass Index 26.8 Comments: The patient is awake, alert and oriented and in no acute distress. Pupils are equal. The neck is supple. Chest: Clear to auscultation bilaterally. Cor: RR with no gallop, click nor murmur Abd: soft with normo-active bowel sounds. There are no masses, no tenderness and no guarding. Extremities: No edema is noted. T IRU A/P (1) UTI (urinary tract infection) Qualifiers: Urinary tract infection type: acute cystitis Hematuria presence: with hematuria Qualified Code(s): N30.01 - Acute cystitis with hematuria Problem details: ANDREW Current visit: No Status: Acute Patient remains stable without dysuria or frequency. (2) Right leg weakness Current visit: Yes Status: Resolved (3) Weakness generalized Current visit: No Status: Acute He has improved with regard to therapy. Continues to have some generalized weakness but is improved. (4) Anorexia Current visit: Yes Status: Chronic (5) Hypertension Qualifiers: Hypertension type: essential hypertension Qualified Code(s): I10 - Essential (primary) hypertension Current visit: Yes Status: Chronic Resuscitation Status: Full Code - Course Hospital Course: Elmer Bran MD: 03/12/17 14:20 He is working with therapy both physical therapy and occupational therapy. Dietitian is monitoring. Does have moderate protein calorie malnutrition based on low. Albumin. His blood pressures are running too high and we will start a daily dose of metoprolol succinate. 03/13/17 13:16 Continues to progress with therapy. Still has lower extremity weakness. His primary goal is to walk again and get back home as soon as possible. Encouragement to eat a balanced diet was given. Recommended blood pressure medication but he declines. We will discontinue metoprolol. 03/16/17 10:50 Blood pressures remain elevated but he declines medication for this. Nutritional intake is certainly marginal. He declines to change this. 03/17/17 09:56 Right groin pain yesterday could've been a sprain or ligament issue. Radiograph of AP pelvis was negative for acute process. - Interventions to Obtain Goals PT Treatment Plan: Balance/Proprioception, Functional Activities, Gait Training , Patient/Family Education, Therapeutic Exercise OT Treatment Plan: ADL (Basic Care), Balance Training, Pt./Family Education, Ther. Exercise for ADL Goals Progress/Modifications: Continue working with patient today and we anticipate that he will be going home tomorrow.
[2017-03-18] MEDS: ASPIRIN *EC* 81 MG TABLET PO SCH (08:49)
--- NOTE | 2017-03-18 12:00 | Discharge Instructions ---
Discharge Plan - Med Rec/Dispo Referrals/Follow Up: Gianfranco Maher MD [Family Provider] - 1 Week (Dr. Abraham Maher on 03/25/17 at 1:20 pm for Hosp. follow-up. [facility] [address] [place], [place] [address]) Prescriptions: New CephALEXin [Keflex] 500 mg PO Q6H #16 capsule Continue Aspirin [Aspirin EC] 81 mg PO DAILY Acetaminophen [Tylenol] 325 - 650 mg PO Q5H PRN PRN Reason: Pain Discontinued Doxycycline [Vibramycin] 100 mg PO BIDWM #14 tab
--- NOTE | 2017-03-18 12:14 | IRU Progress Note ---
- Subjective/Serverity of Illness Jalen was evaluated both in his room as well as in the rehabilitation department. He is anxious to go home. He is able to ambulate with assistance. He is using a walker. Unfortunately, he still has significant weakness although has not really improved a lot recently. I suggested to him that it might be safer for him to go to a nursing facility. He absolutely refuses that. He became very angry and irate when I even mentioned the term retirement. While in the rehabilitation area, he was practicing picking up an object from the floor. Unfortunately he lost his balance falling over to his left side. This was a controlled fall as the therapist was with him all the time. The patient states and the therapist confirms that he did not hit his head nor did he landed hard. I want to check on him again at that point. Has excellent range of motion of both hips. There is no tenderness to palpation. He denies any pain whatsoever. He does not appear to have injured himself. He denies any headaches. He did not lose consciousness. He recalls the entire event. He really wants to go home today. He lives apparently in a trailer and does have someone looking out for him periodically. We believe he is stable at the present time. Exam Vital Signs: Temperature 97.5 F 03/18/17 08:00 Pulse Rate 83 03/18/17 10:50 Respiratory Rate 20 03/18/17 10:50 Blood Pressure 150/79 H 03/18/17 10:50 Pulse Oximetry 94 03/18/17 10:50 Height/Weight/BMI: Height 1.83 m Weight 91.4 kg Body Mass Index 26.8 Comments: The patient is awake, alert and oriented and in no acute distress. He indicated some anger when I mentioned the possibility of retirement. Pupils are equal. The neck is supple. Chest: Clear to auscultation bilaterally. Cor: RR with no gallop, click nor murmur Abd: soft with normo-active bowel sounds. There are no masses, no tenderness and no guarding. Extremities: No edema is noted. I examine him both before and after his controlled fall to the floor. No evidence of injury. Has full range of motion of both hips. No pain is noted. IRU A/P (1) UTI (urinary tract infection) Qualifiers: Urinary tract infection type: acute cystitis Hematuria presence: with hematuria Qualified Code(s): N30.01 - Acute cystitis with hematuria Problem details: ANDREW Current visit: No Status: Acute Tolerating cephalexin well. I imagine he will be able to discontinue this at the time of dismissal but I would defer to the hospitalists in this regard. (2) Right leg weakness Current visit: Yes Status: Resolved (3) Weakness generalized Current visit: No Status: Acute Does have significant generalized weakness. This has improved significant weight during the time of his stay on rehabilitation and he appears to have plateaued. I suggested the possibility of a facility but he absolutely declines. He is competent to make his own decisions at this time. (4) Anorexia Current visit: Yes Status: Chronic (5) Hypertension Qualifiers: Hypertension type: essential hypertension Qualified Code(s): I10 - Essential (primary) hypertension Current visit: Yes Status: Chronic Resuscitation Status: Full Code - Course Hospital Course: Elmer Bran MD: 03/12/17 14:20 He is working with therapy both physical therapy and occupational therapy. Dietitian is monitoring. Does have moderate protein calorie malnutrition based on low. Albumin. His blood pressures are running too high and we will start a daily dose of metoprolol succinate. 03/13/17 13:16 Continues to progress with therapy. Still has lower extremity weakness. His primary goal is to walk again and get back home as soon as possible. Encouragement to eat a balanced diet was given. Recommended blood pressure medication but he declines. We will discontinue metoprolol. 03/16/17 10:50 Blood pressures remain elevated but he declines medication for this. Nutritional intake is certainly marginal. He declines to change this. 03/17/17 09:56 Right groin pain yesterday could've been a sprain or ligament issue. Radiograph of AP pelvis was negative for acute process. 03/18/17 12:15 Patient experienced a controlled fall when he lost his balance today. Suggested use of patroller and he is okay with this. He states that he is perfectly safe to go home and states that he will do fine in that environment. - Interventions to Obtain Goals PT Treatment Plan: Balance/Proprioception, Functional Activities, Gait Training , Patient/Family Education, Therapeutic Exercise OT Treatment Plan: ADL (Basic Care), Balance Training, Pt./Family Education, Ther. Exercise for ADL
--- NOTE | 2017-03-18 12:19 | Discharge Instructions ---
Discharge Plan - Med Rec/Dispo Referrals/Follow Up: Gianfranco Maher MD [Family Provider] - 1 Week (Dr. Abraham Maher on 03/25/17 at 1:20 pm for Hosp. follow-up. [facility] [address] [place], [place] [address]) Prescriptions: New CephALEXin [Keflex] 500 mg PO Q6H #16 capsule Continue Aspirin [Aspirin EC] 81 mg PO DAILY Acetaminophen [Tylenol] 325 - 650 mg PO Q5H PRN PRN Reason: Pain Discontinued Doxycycline [Vibramycin] 100 mg PO BIDWM #14 tab Discharge Instructions/Outpatient Orders: Provider Discharge Instructions Location: Determined By Patient - Disposition 01 Discharged Home, Self-Care
--- NOTE | 2017-03-18 13:45 | Progress Note ---
Progress Note: I discussed his case with occupational therapy and physical therapy. Because the patient lost his balance this morning it is felt that he could improve if we Overnight. We will work with him this afternoon and keep him overnight and then again tomorrow morning. His neighbor who is his assistant professor of forestry is here at the present time and she agrees. She will pick him up tomorrow. Patient was advised that he will be staying overnight and he is okay with this.
[2017-03-19] MEDS: ASPIRIN *EC* 81 MG TABLET PO SCH (08:28)
[2017-03-19 09:05] VITALS: BP 147/72; PULSE 69; RESP 16; TEMP 97.9; O2SAT 98
--- NOTE | 2017-03-22 15:20 | Discharge Summary ---
Discharge Information Date of admission: 03/10/17 12:32 Anticipated date of discharge: 03/19/17 Attending Physician: Elmer Bran MD Primary care physician: Abraham Maher MD Consults: 03/10/17 12:39 Physician Consult [CONS] Routine Consulting Provider: Jamel Spann Reason For Exam: Medical Management Ordering Provider has Notified Insole Cementer: Yes 03/10/17 14:31 Dietary Consult [CONS] Routine Comment: Reason For Exam: Reported poor oral intake - Discharge Diagnosis (1) UTI (urinary tract infection) Status: Acute (2) Right leg weakness Status: Resolved (3) Weakness generalized Status: Acute (4) Anorexia Status: Chronic (5) Hypertension Status: Chronic 1. Urinary tract infection, not hospital-acquired, methicillin sensitive staph aureus 2. Right lower extremity weakness 3. Hypernatremia 4. Hypertension 5. Reduced cognition - Laboratory Labs: 03/16/17 09:17 03/11/17 04:43 History of Present Illness HPI: 03/22/17 15:09 Mr. Humphreys is a 72-year-old male who lives by himself apparently in a mobile home. He does have some assistance from Sima Barclay who is his DURABLE POWER OF PORTRAIT CONSULTANT. He was admitted through the emergency department with right lower extremity weakness and was also noted to have generalized weakness as well. He did have a urinary tract infection with methicillin sensitive staph aureus. He was admitted to the [facility] hospital on March 08, 2017. He was treated for his urinary tract infection. However he continued to be generally debilitated and unable to care for himself at home and for this reason was admitted to the acute inpatient rehabilitation unit. Medical problems identified included the urinary tract infection, right lower extremity weakness , hypernatremia, hypertension and reduced cognition. Hospital Course This is a general summary of the patient's hospital course. For more details refer to the complete medical record. Mr. Humphreys was admitted to the inpatient rehabilitation unit for an individualized program of physical therapy and occupational therapy along with medical management to monitor his urinary tract infection and right lower extremity weakness. It was hoped that he could return to his previous level of functioning in a safe manner. The patient had variable cooperation with physical therapy and occupational therapy. He clearly has reduced mental capacity and thus it was difficult for education to transfer from one day to the next. In addition he was noted to have significant protein calorie malnutrition and he was seen by the dietitian. He primarily eats potato chips, popcorn and some fruit. Attempts were made to improve this and instruct him but it is not likely this will be able to be carried over to his home environment. He did make gains with therapy is as follows: For occupational therapy, eating was independent at admission and upon dismissal. Grooming was contact guard assistance initially and standby assistance subsequently, bathing was minimal assistance initially and standby assistance subsequently. Upper body dressing was initially standby assistance and ultimately was independent functioning. Lower body dressing was moderate assistance initially and standby assistance subsequently. Toilet assistance was contact guard initially and subsequently standby assistance. Toilet transfer assistance was contact guard assistance initially and ultimately standby assistance. Tub transfer assistance was minimal assistance initially and ultimately standby assistance. Bed/chair/wheelchair transfers were in general contact guard assistance initially and ultimately standby assistance. Physical therapy also saw the patient. Car transfers were initially minimal assistance of one and ultimately standby assistance. His ambulatory ability initially was contact guard assistance at 115 feet and subsequently standby assistance at 376 feet with front wheeled walker. He was able to climb 10 steps with contact guard assistance initially and ultimately standby assistance at 12 steps. The hospitalist service followed him throughout the inpatient rehabilitation stay as well and adjusted his antibiotics. With regard to the right leg weakness, there was some objective evidence of this. However it was variable. It did not appear to be related to a stroke. 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 Initial AP pelvis x-ray suggested the possibility of a lucency in one of the pubic rami on the right. Subsequent film was done indicating this was likely an old healed fracture. Shortly prior to dismissal the patient did lose his balance during therapy and was gently let down. He did not hit his head. He had full range of motion of both hips and did not complain of any pain. The patient was felt to be stable for dismissal back to his home on March 19, 2017. We recommended home health. He was reluctant but ultimately did agree to that. In addition, I did start him on some metoprolol for his blood pressures which were elevated. However he subsequently refused to take that and therefore this was discontinued per patient request. We worked closely with his DURABLE POWER OF PORTRAIT CONSULTANT Sima Barclay with regard to placement. He absolutely refused any consideration of facility placement. He is stable and felt to be safe to return home at this time. He will follow-up with his physician Dr. Gianfranco Maher as well. A follow-up urinalysis would be appropriate to ensure that the UTI has cleared. Hospital course: Assessment Right leg weakness Generalized weakness Anorexia UTI-on doxycycline Malnutrition 03/11/17 - hospitalist consult Patient has a dietary consult ordered and will start nutritional supplements. Could consider mirtazapine to help with appetite. Will see how he does w/ nutritional supplements first. Continue doxycycline for UTI through March 17. PT/OT for strengthening. Will continue to follow patient throughout his stay. Thank you for the consult. 03/15/17 Continue Keflex through 03/19/17. Mild-moderate elevations in BP - consider starting antiHTN; could wait until outpatient setting. DC tentatively planned for 03/16/17. Time spent with patient: 25 - 35 minutes Discharge Plan - Med Rec/Dispo Referrals/Follow Up: Gianfranco Maher MD [Family Provider] - 1 Week (Dr. Abraham Maher on 03/25/17 at 1:20 pm for Hosp. follow-up. [facility] [address] [place] [address]) [place] Instructions: Urinary Tract Infection in Men (DC), Hypertension (DC) Prescriptions: New CephALEXin [Keflex] 500 mg PO Q6H #16 capsule Continue Aspirin [Aspirin EC] 81 mg PO DAILY Acetaminophen [Tylenol] 325 - 650 mg PO Q5H PRN PRN Reason: Pain Discontinued Doxycycline [Vibramycin] 100 mg PO BIDWM #14 tab Discharge Instructions/Outpatient Orders: Provider Discharge Instructions Location: Determined By Patient - Disposition [address] [place] [address] Health Service
== END 2017-03-19 22:53 | disposition home health service (06) | DRG 945 ==
PROVIDERS: ADMIT Internal Medicine; ATTEND Internal Medicine